=== PATIENT | male | born 1945 | race Caucasian/White ===

== ENCOUNTER → 2016-12-24 | Outpatient (CLI) | payer MEDICARE, MEDICAID ==
[~2016-12-24] MED LIST: AMLO5TAB2 PO; BENA20TA2 PO; BUDE10.2 IH; CALC200T10 PO; FINA5TAB4 PO; HYDR-3138 PO; TAMS-11 PO
== END | disposition home or self-care (01) ==
LOC: CARD 10:03
PROVIDERS: ATTEND Internal Medicine
DX: R20.2 Paresthesia of skin (principal)
CPT/HCPCS: 95885; 95908

== ENCOUNTER → 2017-02-16 | Outpatient (CLI) | payer MEDICARE, MEDICAID | END | disposition home or self-care (01) | LOC: CFH 10:32 | PROVIDERS: ATTEND Internal Medicine | DX: S12.110K Anterior displaced Type II dens fracture, subsequent encounter for fracture with nonunion (principal); M50.122 Cervical disc disorder at C5-C6 level with radiculopathy; M50.123 Cervical disc disorder at C6-C7 level with radiculopathy; M43.12 Spondylolisthesis, cervical region; M47.892 Other spondylosis, cervical region; G93.89 Other specified disorders of brain; M25.78 Osteophyte, vertebrae; M48.02 Spinal stenosis, cervical region; X58.XXXD Exposure to other specified factors, subsequent encounter | CPT/HCPCS: 72141 ==

== ENCOUNTER → 2017-04-11 | Outpatient (CLI) | payer MEDICARE, MEDICAID ==
[~2017-04-11] MED LIST changes: -CALC200T10 PO; +CALC200T56 PO; +CHOL10002 PO; -HYDR-3138 PO; +HYDR-3237 PO; +MULT-516 PO; +TAMS0.4C2 PO
[2017-04-11 11:51] LABS: HEMATOCRIT 47.1 % (39.2-51.8); HEMOGLOBIN 15.9 g/dL (13.7-18.0); WHITE BLOOD COUNT 8.6 x10^3/uL (3.4-10)
[2017-04-11 11:55] LABS: BLOOD UREA NITROGEN 18 mg/dL (7-18)
[2017-04-11 12:00] LABS: PATH.CAST-FLAG NOT PRESENT; SPERM-FLAG NOT PRESENT; SRC-FLAG NOT PRESENT; XTAL-FLAG NOT PRESENT; YLC-FLAG NOT PRESENT
== END | disposition home or self-care (01) ==
LOC: STAR 09:53
PROVIDERS: ATTEND Neurological Surgery
DX: Z01.818 Encounter for other preprocedural examination (principal); M48.02 Spinal stenosis, cervical region; M50.30 Other cervical disc degeneration, unspecified cervical region; R79.1 Abnormal coagulation profile; R82.99 Other abnormal findings in urine
CPT/HCPCS: 36415; 71020; 80048; 81001; 85025; 85610; 85730; 87077; 87086; 87147; 87186; 93005

== ENCOUNTER → 2017-04-18 | Outpatient (CLI) | payer MEDICARE, MEDICAID ==
[~2017-04-18] MED LIST changes: +CIPR500T87 PO; +CYCL-259 PO; +OXYC1TAB7 PO
== END | disposition home or self-care (01) ==
LOC: CVU 06:41
PROVIDERS: ATTEND Internal Medicine Cardiovascular Disease
DX: Z01.810 Encounter for preprocedural cardiovascular examination (principal); I35.8 Other nonrheumatic aortic valve disorders; I11.9 Hypertensive heart disease without heart failure
CPT/HCPCS: 93306

== ENCOUNTER → 2017-04-19 | Outpatient (CLI) | payer MEDICARE, MEDICAID ==
[~2017-04-19] MED LIST changes: -CYCL-259 PO; -OXYC1TAB7 PO; +REGADENOSON 0.4 MG/5 ML SYRINGE ONE
== END | disposition home or self-care (01) ==
LOC: RAD 10:59
PROVIDERS: ATTEND Internal Medicine Cardiovascular Disease
DX: Z01.810 Encounter for preprocedural cardiovascular examination (principal); I25.10 Atherosclerotic heart disease of native coronary artery without angina pectoris; I25.2 Old myocardial infarction
CPT/HCPCS: 78452; 93017; A9502; J2785

== ENCOUNTER 2017-04-20 07:00 | Inpatient (IN) | payer MEDICARE, MEDICAID ==
[~2017-04-20] VITALS: Ht 182.9 cm; Wt 89.2 kg
[~2017-04-20 07:00] MED LIST changes: +BACITRACIN 50,000 UNIT ONE; +BUPIVACAINE/PF 0.5% ONE; -CIPR500T87 PO; +EPINEPHRINE 1 MG/ML, 1ML ONE; -REGADENOSON 0.4 MG/5 ML SYRINGE ONE; +THROMBIN 5,000 UNIT VIAL TP ONE
[2017-04-20] MEDS ORDERED: LACTATED RINGERS 1,000 ML IV SCH (07:58)
[2017-04-20] MEDS ORDERED: CIPR500T87 PO (08:07)
[2017-04-20 08:12] VITALS: BP 156/90
[2017-04-20] MEDS ORDERED: MIDAZOLAM 1 MG/ML, 2ML ONE (08:46)
[2017-04-20] MEDS ORDERED: KETAMINE 10 MG/ML, 20ML ONE (08:46)
[2017-04-20] MEDS ORDERED: FENTANYL PF 100 MCG/2ML ONE ×4 (08:46→14:07)
[2017-04-20] MEDS ORDERED: PHENYLEPHRINE 10 MG/ML ONE (09:21)
[2017-04-20] MEDS ORDERED: CEFAZOLIN 1,000 MG ONE (09:21)
[2017-04-20] MEDS ORDERED: PROPOFOL 10 MG/ML, 20ML ONE (09:21)
[2017-04-20] MEDS ORDERED: ROCURONIUM 10 MG/ML ONE (09:21)
[2017-04-20] MEDS ORDERED: ONDANSETRON 2MG/ML, 2ML ONE (09:21)
[2017-04-20] MEDS ORDERED: DEXAMETHASONE 4 MG/ML, 1ML ONE (09:21)
[2017-04-20] MEDS ORDERED: PROPOFOL 10 MG/ML, 50ML ONE (09:21)
[2017-04-20] MEDS ORDERED: ACETAMINOPHEN 325 MG TABLET PO PRN (10:30)
[2017-04-20] MEDS ORDERED: ONDANSETRON 2MG/ML, 2ML IVPush PRN ×2 (10:30→13:00)
[2017-04-20] MEDS ORDERED: ALBUTEROL/IPRATROPIUM 2.5MG/0.5MG, 3 ML NPPB PRN (10:30)
[2017-04-20] MEDS ORDERED: DIAZEPAM 5 MG/ML, 2ML IVPush PRN (10:30)
[2017-04-20] MEDS ORDERED: MEPERIDINE/PF 25MG/0.5ML IVPush PRN (10:30)
[2017-04-20] MEDS ORDERED: OXYcodone 5 MG/5 ML ORAL.SOL UDC PO PRN (10:30)
[2017-04-20] MEDS ORDERED: LABETALOL 5MG/ML, 20ML IV PRN (10:30)
[2017-04-20] MEDS ORDERED: EPHEDRINE 50 MG/ML, 1ML IVPush PRN (10:30)
[2017-04-20] MEDS ORDERED: hydrALAzine 20 MG/ML, 1ML IV PRN (10:30)
[2017-04-20] MEDS ORDERED: PROMETHAZINE 25 MG/ML, 1ML IV PRN (10:30)
[2017-04-20] MEDS ORDERED: MIDAZOLAM 1 MG/ML, 2ML IV PRN (10:30)
[2017-04-20] MEDS ORDERED: FENTANYL PF 100 MCG/2ML IV PRN (10:30)
[2017-04-20] MEDS ORDERED: VANCOMYCIN 1,000 MG ONE (11:21)
[2017-04-20] MEDS ORDERED: BUPIVACAINE/PF 0.5% ONE (11:21)
[2017-04-20] MEDS ORDERED: PHARMACY MAY ADJ FOR RENAL FX MC PRN (13:00)
[2017-04-20] MEDS ORDERED: DIPHENHYDRAMINE 50 MG/ML, 1ML IVPush PRN (13:00)
[2017-04-20] MEDS ORDERED: BISACODYL 10 MG SUPP PR PRN (13:00)
[2017-04-20] MEDS ORDERED: LABETALOL 5MG/ML, 20ML ONE (13:00)
[2017-04-20] MEDS ORDERED: morphine SULFATE 10 MG/ML, 1ML IVPush PRN (13:00)
[2017-04-20] MEDS ORDERED: SENNA/DOCUSATE TABLET PO PRN (13:00)
[2017-04-20] MEDS ORDERED: LABETALOL 5MG/ML, 20ML IVPush PRN (13:00)
[2017-04-20] MEDS ORDERED: MAGNESIUM HYDROXIDE 8%, 30ML UDC PO PRN (13:00)
[2017-04-20] MEDS ORDERED: OXYcodone 5 MG/5 ML ORAL.SOL UDC ONE (13:00)
[2017-04-20] MEDS ORDERED: DIPHENHYDRAMINE 50 MG CAPSULE PO PRN (13:00)
[2017-04-20] MEDS ORDERED: PROMETHAZINE 25 MG/ML, 1ML IM PRN (13:00)
[2017-04-20] MEDS ORDERED: HYDROmorphone 1 MG/ML, 1ML ONE (13:12)
[2017-04-20] MEDS ORDERED: hydrALAzine 20 MG/ML, 1ML ONE (13:12)
[2017-04-20] MEDS: HYDROmorphone 1 MG/ML, 1ML IV PRN ×2 (13:30→14:00)
[2017-04-20] MEDS ORDERED: CYCLOBENZAPRINE 10 MG TABLET ONE (14:07)
[2017-04-20] MEDS: CYCLOBENZAPRINE 10 MG TABLET PO PRN (14:11)
[2017-04-20] MEDS ORDERED: THROMBIN 5,000 UNIT VIAL TP ONE (14:20)
[2017-04-20] MEDS ORDERED: ENOXAPARIN 40 MG/0.4 ML SQ SCH (16:00)
[2017-04-20] MEDS: HYDROcodone/APAP 5/325 TABLET PO PRN ×2 (16:53→18:40)
[2017-04-20] MEDS: D5%-0.9% NACL+KCL 20MEQ 1,000 ML IV SCH (16:54)
[2017-04-20] MEDS: CEFAZOLIN PMX 1GM/50ML 50 ML IVPB SCH (16:54)
[2017-04-20 18:56] VITALS: BP 146/76
[2017-04-20] MEDS ORDERED: BUDESONIDE 0.5 MG/2 ML INHA INH SCH (21:00)
[2017-04-20] MEDS: SODIUM CHLORIDE FLUSH 10ML SYR IVF SCH (21:49)
[2017-04-20] MEDS: TAMSULOSIN 0.4 MG CAP.ER.24H PO SCH (21:49)
[2017-04-20] MEDS: FLUTICASONE/VILANTEROL 200-25MCG/INH INH SCH (21:50)
[2017-04-20 22:59] VITALS: BP 139/79
[2017-04-20] MEDS: OXYcodone/APAP 5/325MG TABLET PO PRN (23:04)
[2017-04-21] MEDS: CEFAZOLIN PMX 1GM/50ML 50 ML IVPB SCH (01:23)
[2017-04-21 03:44] VITALS: BP 116/72
[2017-04-21] MEDS: D5%-0.9% NACL+KCL 20MEQ 1,000 ML IV SCH ×2 (04:14→20:16)
[2017-04-21] MEDS: ENOXAPARIN 40 MG/0.4 ML SQ SCH (05:07)
[2017-04-21 05:53] LABS: HEMOGLOBIN 13.7 g/dL (13.7-18.0); WHITE BLOOD COUNT 11.6 x10^3/uL (3.4-10)
[2017-04-21 06:06] LABS: BLOOD UREA NITROGEN 20 mg/dL (7-18)
[2017-04-21] MEDS: OXYcodone/APAP 5/325MG TABLET PO PRN (06:19)
[2017-04-21 08:50] VITALS: BP 120/70
[2017-04-21] MEDS: FINASTERIDE 5 MG TABLET PO SCH (09:21)
[2017-04-21] MEDS: SODIUM CHLORIDE FLUSH 10ML SYR IVF SCH ×2 (09:22→20:16)
[2017-04-21] MEDS: FLUTICASONE/VILANTEROL 200-25MCG/INH INH SCH ×2 (09:22→20:17)
[2017-04-21] MEDS: CIPROFLOXACIN 500 MG TABLET PO SCH (09:22)
[2017-04-21] MEDS: TAMSULOSIN 0.4 MG CAP.ER.24H PO SCH ×2 (09:23→20:16)
[2017-04-21 15:22] VITALS: BP 153/84
[2017-04-21] MEDS: HYDROcodone/APAP 5/325 TABLET PO PRN (15:44)
[2017-04-21] MEDS: CYCLOBENZAPRINE 10 MG TABLET PO PRN (16:40)
[2017-04-21] MEDS ORDERED: CALCIUM CARBONATE 500 MG TAB.CHEW PO PRN (17:30)
[2017-04-21 19:09] VITALS: BP 157/82
[2017-04-22] MEDS: CYCLOBENZAPRINE 10 MG TABLET PO PRN ×2 (00:41→12:56)
[2017-04-22 00:56] VITALS: BP 196/92
[2017-04-22] MEDS: OXYcodone/APAP 5/325MG TABLET PO PRN ×3 (01:36→20:05)
[2017-04-22 06:03] LABS: HEMATOCRIT 41.3 % (39.2-51.8); HEMOGLOBIN 13.6 g/dL (13.7-18.0); WHITE BLOOD COUNT 10.8 x10^3/uL (3.4-10)
[2017-04-22 06:13] LABS: BLOOD UREA NITROGEN 21 mg/dL (7-18)
[2017-04-22] MEDS: ENOXAPARIN 40 MG/0.4 ML SQ SCH (06:43)
[2017-04-22 06:57] VITALS: BP 156/94
[2017-04-22] MEDS: D5%-0.9% NACL+KCL 20MEQ 1,000 ML IV SCH ×2 (07:40→17:40)
[2017-04-22] MEDS: CIPROFLOXACIN 500 MG TABLET PO SCH (09:06)
[2017-04-22] MEDS: SODIUM CHLORIDE FLUSH 10ML SYR IVF SCH (09:06)
[2017-04-22] MEDS: FLUTICASONE/VILANTEROL 200-25MCG/INH INH SCH (09:07)
[2017-04-22] MEDS: FINASTERIDE 5 MG TABLET PO SCH (09:07)
[2017-04-22] MEDS: TAMSULOSIN 0.4 MG CAP.ER.24H PO SCH (09:08)
[2017-04-22 12:41] VITALS: BP 185/109
[2017-04-22 18:39] VITALS: BP 158/77
[2017-04-23] MEDS: TAMSULOSIN 0.4 MG CAP.ER.24H PO SCH ×2 (00:10→08:26)
[2017-04-23] MEDS: SODIUM CHLORIDE FLUSH 10ML SYR IVF SCH ×2 (00:10→08:26)
[2017-04-23] MEDS: FLUTICASONE/VILANTEROL 200-25MCG/INH INH SCH ×2 (00:10→08:26)
[2017-04-23 01:31] VITALS: BP 132/80
[2017-04-23] MEDS: CYCLOBENZAPRINE 10 MG TABLET PO PRN ×2 (02:09→10:03)
[2017-04-23] MEDS: D5%-0.9% NACL+KCL 20MEQ 1,000 ML IV SCH (03:40)
[2017-04-23] MEDS: OXYcodone/APAP 5/325MG TABLET PO PRN ×2 (04:07→14:16)
[2017-04-23 05:21] LABS: HEMATOCRIT 40.2 % (39.2-51.8); HEMOGLOBIN 13.5 g/dL (13.7-18.0); WHITE BLOOD COUNT 9.7 x10^3/uL (3.4-10)
[2017-04-23] MEDS: ENOXAPARIN 40 MG/0.4 ML SQ SCH (05:47)
[2017-04-23 08:01] VITALS: BP 136/82
[2017-04-23] MEDS: FINASTERIDE 5 MG TABLET PO SCH (08:25)
[2017-04-23] MEDS: CIPROFLOXACIN 500 MG TABLET PO SCH (08:26)
[2017-04-23 14:56] VITALS: BP 130/78
[2017-04-23] MEDS ORDERED: CYCL-259 PO (16:44)
[2017-04-23] MEDS ORDERED: OXYC1TAB7 PO (16:44)
== END 2017-04-23 17:30 | DRG 471 ==
LOC: ORIP 07:36 → 4NOR 14:59
PROVIDERS: ADMIT Neurological Surgery; ATTEND Neurological Surgery
PROC: 4A00X4Z Measurement of Central Nervous Electrical Activity, External Approach (ICD-10-PCS; 2017-04-20)
PROC: 0RG1071 Fusion of Cervical Vertebral Joint with Autologous Tissue Substitute, Posterior Approach, Posterior Column, Open Approach (ICD-10-PCS; principal; 2017-04-20 09:30)
DX: M48.02 Spinal stenosis, cervical region (principal); N17.0 Acute kidney failure with tubular necrosis; G95.89 Other specified diseases of spinal cord; J44.9 Chronic obstructive pulmonary disease, unspecified; N40.0 Benign prostatic hyperplasia without lower urinary tract symptoms; G89.29 Other chronic pain; I25.10 Atherosclerotic heart disease of native coronary artery without angina pectoris; I12.9 Hypertensive chronic kidney disease with stage 1 through stage 4 chronic kidney disease, or unspecified chronic kidney disease; N18.3 Chronic kidney disease, stage 3 (moderate); Z79.51 Long term (current) use of inhaled steroids; Z79.899 Other long term (current) drug therapy; I25.2 Old myocardial infarction; M53.2X2 Spinal instabilities, cervical region
CPT/HCPCS: 36415; 72040; 72125; 80048; 85025; C1713; J0171; J0690; J1100; J1170; J1650; J2250; J2405; J2704; J3010; J3370; J3490; C1762; J0360; J2370; J3480; J7120

== ENCOUNTER → 2017-06-14 | Outpatient (CLI) | payer MEDICARE, MEDICAID ==
[~2017-06-14] MED LIST changes: -BACITRACIN 50,000 UNIT ONE; -BUPIVACAINE/PF 0.5% ONE; +CIPR500T87 PO; +CYCL-259 PO; -EPINEPHRINE 1 MG/ML, 1ML ONE; +OXYC1TAB7 PO; -THROMBIN 5,000 UNIT VIAL TP ONE
== END | disposition home or self-care (01) ==
LOC: CFH 11:40
PROVIDERS: ATTEND Neurological Surgery
DX: M54.2 Cervicalgia (principal)
CPT/HCPCS: 72040

== ENCOUNTER → 2017-10-17 | Outpatient (CLI) | payer MEDICARE, MEDICAID | END | disposition home or self-care (01) | LOC: CFH 10:29 | PROVIDERS: ATTEND Physician Assistant | DX: M50.322 Other cervical disc degeneration at C5-C6 level (principal); M50.01 Cervical disc disorder with myelopathy, high cervical region | CPT/HCPCS: 72125 ==

== ENCOUNTER → 2017-11-14 | Outpatient (CLI) | payer MEDICARE, MEDICAID | END | disposition home or self-care (01) | LOC: CFH 14:52 | PROVIDERS: ATTEND Neurological Surgery | DX: M47.13 Other spondylosis with myelopathy, cervicothoracic region (principal); M48.03 Spinal stenosis, cervicothoracic region; M79.602 Pain in left arm | CPT/HCPCS: 72141 ==

== ENCOUNTER 2018-02-16 10:27 | Emergency (ER) | payer MEDICARE, MEDICAID ==
[~2018-02-16] VITALS: Ht 182.9 cm; Wt 93.0 kg
[2018-02-16 11:31] LABS: BASOPHILS # (AUTO) 0.04 x10^3/uL (0-0.1); BASOPHILS % (AUTO) 1 % (0-1); EOSINOPHILS # (AUTO) 0.27 x10^3/uL (0-0.4); EOSINOPHILS % (AUTO) 4 % (1-7); LYMPHOCYTES # (AUTO) 1.41 x10^3/uL (1-3.4); LYMPHOCYTES % (AUTO) 21 % (22-44); MD NO; MEAN CORPUSCULAR HEMOGLOBIN 30.5 pg (27.5-34.5); MEAN CORPUSCULAR HGB CONC 33.4 g/dL (33.2-36.2); MEAN CORPUSCULAR VOLUME 91.2 fL (81-97); MEAN PLATELET VOLUME 8.6 fL (7.4-10.4); MONOCYTES # (AUTO) 0.84 x10^3/uL (0.2-0.8); MONOCYTES % (AUTO) 13 % (2-9); NEUTROPHILS # (AUTO) 4.11 x10^3/uL (1.8-6.8); NEUTROPHILS % (AUTO) 62 % (42-75); PLATELET COUNT 168 x10^3/uL (130-400); RED BLOOD COUNT 4.85 x10^6/uL (4.38-5.82); RED CELL DISTRIBUTION WIDTH 14.3 % (9.4-14.8)
[2018-02-16 11:41] LABS: ALANINE AMINOTRANSFERASE 34 U/L (12-78); ALBUMIN 3.4 g/dL (3.4-5.0); ANION GAP 9 mmol/L (5-15); CHLORIDE 112 mmol/L (98-107); CREATININE 1.72 mg/dL (0.7-1.3)
[2018-02-16 11:43] LABS: ALKALINE PHOSPHATASE 81 U/L (45-117); BILIRUBIN,TOTAL 0.5 mg/dL (0.2-1.0); TOTAL PROTEIN 6.8 g/dL (6.4-8.2)
[2018-02-16 12:56] VITALS: BP 136/77
== END 2018-02-16 13:04 | disposition home or self-care (01) ==
LOC: ED 11:30
DX: I87.2 Venous insufficiency (chronic) (peripheral) (principal); R60.0 Localized edema; I10 Essential (primary) hypertension; I25.2 Old myocardial infarction; J43.9 Emphysema, unspecified; I25.10 Atherosclerotic heart disease of native coronary artery without angina pectoris
CPT/HCPCS: 36415; 80053; 85025; 99284

== ENCOUNTER → 2018-03-08 | Outpatient (CLI) | payer MEDICARE, MEDICAID ==
[~2018-03-08] MED LIST changes: -BENA20TA2 PO; +BENA20TA4 PO
== END | disposition home or self-care (01) ==
LOC: RAD 10:31
PROVIDERS: ATTEND Internal Medicine Hospice and Palliative Medicine
DX: M47.897 Other spondylosis, lumbosacral region (principal)
CPT/HCPCS: 72100

== ENCOUNTER → 2018-05-19 | Outpatient (CLI) | payer MEDICARE, MEDICAID ==
[~2018-05-19] MED LIST changes: -AMLO5TAB2 PO; +AMLO5TAB7 PO
== END | disposition home or self-care (01) ==
LOC: CFH 10:29
PROVIDERS: ATTEND Neurological Surgery
DX: M50.30 Other cervical disc degeneration, unspecified cervical region (principal); M51.26 Other intervertebral disc displacement, lumbar region; M48.061 Spinal stenosis, lumbar region without neurogenic claudication
CPT/HCPCS: 72040; 72148

== ENCOUNTER → 2018-05-24 | Outpatient (CLI) | payer MEDICARE, MEDICAID | END | disposition home or self-care (01) | LOC: CFH 09:57 | PROVIDERS: ATTEND Neurological Surgery | DX: M48.02 Spinal stenosis, cervical region (principal); M47.892 Other spondylosis, cervical region; M43.22 Fusion of spine, cervical region; M50.01 Cervical disc disorder with myelopathy, high cervical region | CPT/HCPCS: 72141 ==

== ENCOUNTER 2018-07-28 09:44 | Emergency (ER) | payer MEDICARE, MEDICAID ==
[~2018-07-28] VITALS: Ht 182.9 cm; Wt 98.7 kg
[~2018-07-28 09:44] MED LIST changes: +AMLO-150 PO; -AMLO5TAB7 PO
[2018-07-28 09:49] VITALS: BP 171/91
--- NOTE | 2018-07-28 10:07 | NUR ---
GOPHERMAN: PT TO ROOM FROM LOBBY VIA PERSONAL SCOOTER.
[2018-07-28 10:53] LABS: BASOPHILS # (AUTO) 0.04 x10^3/uL (0-0.1); BASOPHILS % (AUTO) 1 % (0-1); EOSINOPHILS # (AUTO) 0.34 x10^3/uL (0-0.4); EOSINOPHILS % (AUTO) 5 % (1-7); LYMPHOCYTES # (AUTO) 1.57 x10^3/uL (1-3.4); LYMPHOCYTES % (AUTO) 22 % (22-44); MD NO; MEAN CORPUSCULAR HEMOGLOBIN 30.1 pg (27.5-34.5); MEAN CORPUSCULAR HGB CONC 33.2 g/dL (33.2-36.2); MEAN CORPUSCULAR VOLUME 90.8 fL (81-97); MEAN PLATELET VOLUME 8.5 fL (7.4-10.4); MONOCYTES # (AUTO) 0.71 x10^3/uL (0.2-0.8); MONOCYTES % (AUTO) 10 % (2-9); NEUTROPHILS # (AUTO) 4.53 x10^3/uL (1.8-6.8); NEUTROPHILS % (AUTO) 63 % (42-75); PLATELET COUNT 167 x10^3/uL (130-400); RED BLOOD COUNT 4.92 x10^6/uL (4.38-5.82); RED CELL DISTRIBUTION WIDTH 14.6 % (9.4-14.8)
[2018-07-28 11:02] LABS: INTERNATIONAL NORMALIZED RATIO 1.01 (0.93-1.1); PROTHROMBIN TIME 10.7 Seconds (9.6-11.5)
[2018-07-28 11:06] LABS: ALBUMIN 3.5 g/dL (3.4-5.0); ANION GAP 8 mmol/L (5-15); CALCIUM 7.6 mg/dL (8.5-10.1); CHLORIDE 113 mmol/L (98-107); CREATININE 1.72 mg/dL (0.7-1.3)
== END 2018-07-28 11:42 | disposition home or self-care (01) ==
LOC: ED 11:36
DX: I80.02 Phlebitis and thrombophlebitis of superficial vessels of left lower extremity (principal); J44.9 Chronic obstructive pulmonary disease, unspecified; I25.2 Old myocardial infarction; I25.10 Atherosclerotic heart disease of native coronary artery without angina pectoris; I10 Essential (primary) hypertension; Z90.49 Acquired absence of other specified parts of digestive tract; Z87.891 Personal history of nicotine dependence
CPT/HCPCS: 36415; 80048; 82040; 85025; 85610; 99284

== ENCOUNTER 2020-01-03 16:03 | Inpatient (IN) | payer MEDICARE, MEDICAID ==
[~2020-01-03] VITALS: Ht 182.9 cm; Wt 97.4 kg
[~2020-01-03 16:03] MED LIST changes: -BENA20TA4 PO; +BENA20TA54 PO
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
[2020-01-03 16:57] LABS: BASOPHILS # (AUTO) 0.05 x10^3/uL (0-0.1); BASOPHILS % (AUTO) 1 % (0-1); EOSINOPHILS # (AUTO) 0.33 x10^3/uL (0-0.4); EOSINOPHILS % (AUTO) 4 % (1-7); LYMPHOCYTES # (AUTO) 1.84 x10^3/uL (1-3.4); LYMPHOCYTES % (AUTO) 23 % (22-44); MD NO; MEAN CORPUSCULAR HEMOGLOBIN 31.5 pg (27.5-34.5); MEAN CORPUSCULAR VOLUME 95.4 fL (81-97); MEAN PLATELET VOLUME 8.9 fL (7.4-10.4); MONOCYTES # (AUTO) 0.99 x10^3/uL (0.2-0.8); MONOCYTES % (AUTO) 12 % (2-9); NEUTROPHILS % (AUTO) 61 % (42-75); PLATELET COUNT 192 x10^3/uL (130-400); RED BLOOD COUNT 5.35 x10^6/uL (4.38-5.82); RED CELL DISTRIBUTION WIDTH 14.8 % (9.4-14.8)
[2020-01-03 17:06] LABS: INTERNATIONAL NORMALIZED RATIO 0.96 (0.93-1.1); PROTHROMBIN TIME 10.2 Seconds (9.6-11.5)
[2020-01-03 17:07] LABS: ALANINE AMINOTRANSFERASE 46 U/L (12-78); ALBUMIN 3.8 g/dL (3.4-5.0); ANION GAP 8 mmol/L (5-15); CALCIUM 8.6 mg/dL (8.5-10.1); CHLORIDE 113 mmol/L (98-107); CREATININE 1.69 mg/dL (0.7-1.3)
[2020-01-03 17:11] LABS: ALKALINE PHOSPHATASE 91 U/L (45-117); BILIRUBIN,TOTAL 0.6 mg/dL (0.2-1.0); TOTAL PROTEIN 7.7 g/dL (6.4-8.2); TROPONIN I < 0.015 ng/mL (0.000-0.045)
[2020-01-03] MEDS ORDERED: ASPIRIN 81 MG TABLET EC ONE (18:15)
[2020-01-03] MEDS ORDERED: ASPIRIN 81 MG TABLET CHEW ONE (18:19)
--- NOTE | 2020-01-03 18:21 | NUR ---
BREAK RN: PT MEDICATED PER SEP, PT RESTING IN [facility], NO NEEDS AT THIS TIME, AWAITING CTA
[2020-01-03] MEDS ORDERED: ASPIRIN 81 MG TABLET CHEW PO ONE (18:30)
[2020-01-03] MEDS ORDERED: SODIUM CHLORIDE FLUSH 10ML SYR IVF PRN (19:00)
[2020-01-03] MEDS ORDERED: OMNIPAQUE 350 MG/ML, 75ML BOTTLE ONE (19:10)
[2020-01-03] MEDS ORDERED: LACTATED RINGERS 1,000 ML IV SCH (20:00)
[2020-01-03] MEDS ORDERED: ONDANSETRON 2MG/ML, 2ML IVPush PRN (20:00)
[2020-01-03] MEDS ORDERED: DOCUSATE 100 MG CAPSULE PO PRN (20:00)
[2020-01-03] MEDS ORDERED: ATORVASTATIN 40 MG TABLET PO SCH (21:00)
[2020-01-03] MEDS: HEPARIN 5,000 UNITS/ML, 1ML SQ SCH (21:29)
[2020-01-03 21:32] VITALS: BP 191/92
[2020-01-03 21:50] VITALS: BP 176/100
[2020-01-04] VITALS (7 sets, daily range): BP systolic 152–179; BP diastolic 81–118
[2020-01-04] MEDS: ACETAMINOPHEN 325 MG TABLET PO PRN ×2 (04:18→22:45)
[2020-01-04] MEDS: HEPARIN 5,000 UNITS/ML, 1ML SQ SCH ×3 (04:18→20:07)
[2020-01-04 05:33] LABS: CHLORIDE,URINE RANDOM 154 mmol/L; POTASSIUM,URINE RANDOM 39 mmol/L; SODIUM,URINE RANDOM 151 mmol/L
[2020-01-04 06:11] LABS: BASOPHILS # (AUTO) 0.05 x10^3/uL (0-0.1); BASOPHILS % (AUTO) 1 % (0-1); EOSINOPHILS # (AUTO) 0.39 x10^3/uL (0-0.4); EOSINOPHILS % (AUTO) 5 % (1-7); LYMPHOCYTES # (AUTO) 2.21 x10^3/uL (1-3.4); LYMPHOCYTES % (AUTO) 28 % (22-44); MD NO; MEAN CORPUSCULAR HEMOGLOBIN 31.9 pg (27.5-34.5); MEAN CORPUSCULAR HGB CONC 33.4 g/dL (33.2-36.2); MEAN CORPUSCULAR VOLUME 95.4 fL (81-97); MONOCYTES # (AUTO) 1.04 x10^3/uL (0.2-0.8); MONOCYTES % (AUTO) 13 % (2-9); NEUTROPHILS # (AUTO) 4.35 x10^3/uL (1.8-6.8); NEUTROPHILS % (AUTO) 54 % (42-75); PLATELET COUNT 166 x10^3/uL (130-400); RED BLOOD COUNT 4.82 x10^6/uL (4.38-5.82); RED CELL DISTRIBUTION WIDTH 14.8 % (9.4-14.8)
[2020-01-04 06:27] LABS: CHLORIDE 110 mmol/L (98-107)
[2020-01-04 06:49] LABS: ANION GAP 8 mmol/L (5-15); CALCIUM 7.7 mg/dL (8.5-10.1); CHOL/HDL RATIO 7.2; CHOLESTEROL, TOTAL 180 mg/dL (140-239); CREATININE 1.55 mg/dL (0.7-1.3); HDL CHOL % 14 % (26-37); HDL CHOLESTEROL (DIRECT) 25 mg/dL (40-60); TRIGLYCERIDES 456 mg/dL (50-200)
[2020-01-04] MEDS ORDERED: ASPIRIN 81 MG TABLET CHEW PO/NG SCH (09:00)
[2020-01-04] MEDS: ALBUTEROL/IPRATROPIUM 2.5MG/0.5MG, 3 ML IPPB SCH (11:30)
[2020-01-04] MEDS ORDERED: CLOPIDOGREL 300 MG TABLET PO ONE (11:30)
[2020-01-04] MEDS ORDERED: LABETALOL 5MG/ML, 20ML IVPush PRN (11:30)
[2020-01-04] MEDS ORDERED: CYCLOBENZAPRINE 10 MG TABLET PO PRN (11:30)
[2020-01-04] MEDS: FINASTERIDE 5 MG TABLET PO SCH (12:23)
[2020-01-04] MEDS: TAMSULOSIN 0.4 MG CAP.ER.24H PO SCH ×2 (12:24→20:07)
[2020-01-04] MEDS: AMLODIPINE 5 MG TABLET PO SCH ×2 (12:24→20:07)
[2020-01-04] MEDS ORDERED: ATORVASTATIN 40 MG TABLET PO SCH (21:00)
[2020-01-05 01:23] VITALS: BP 142/79
[2020-01-05 04:10] VITALS: BP 148/83
[2020-01-05] MEDS: HEPARIN 5,000 UNITS/ML, 1ML SQ SCH ×2 (04:14→12:00)
[2020-01-05 08:13] VITALS: BP 166/96
[2020-01-05] MEDS ORDERED: ASPIRIN 325 MG TABLET EC PO SCH (09:00)
[2020-01-05] MEDS ORDERED: CLOPIDOGREL 75 MG TABLET PO SCH (09:00)
[2020-01-05] MEDS ORDERED: CHOLECALCIFEROL 1,000 UNIT TABLET PO SCH (09:00)
[2020-01-05] MEDS ORDERED: MULTIVITAMIN 1 TABLET PO SCH (09:00)
[2020-01-05] MEDS: ALBUTEROL/IPRATROPIUM 2.5MG/0.5MG, 3 ML IPPB SCH (09:00)
[2020-01-05] MEDS: FINASTERIDE 5 MG TABLET PO SCH (09:14)
[2020-01-05] MEDS: TAMSULOSIN 0.4 MG CAP.ER.24H PO SCH (09:14)
[2020-01-05] MEDS: AMLODIPINE 5 MG TABLET PO SCH (09:15)
[2020-01-05] MEDS ORDERED: CLOP75TA PO (10:43)
[2020-01-05] MEDS ORDERED: ASPI-650 PO (10:43)
[2020-01-05] MEDS ORDERED: ATOR40TA78 PO (10:43)
[2020-01-05] MEDS ORDERED: AMLO-150 PO (10:43)
[2020-01-05 13:21] VITALS: BP 153/69
== END 2020-01-05 14:25 | disposition home health service (06) | DRG 64 ==
LOC: ED 17:39 → EDIP 18:51 → 4EST 19:59 → DCLOUNGE 01-05 14:03
PROVIDERS: ADMIT Hospitalist; ATTEND Hospitalist
DX: I63.419 Cerebral infarction due to embolism of unspecified middle cerebral artery (principal); N17.0 Acute kidney failure with tubular necrosis; G81.94 Hemiplegia, unspecified affecting left nondominant side; G93.89 Other specified disorders of brain; I10 Essential (primary) hypertension; I25.10 Atherosclerotic heart disease of native coronary artery without angina pectoris; R29.706 NIHSS score 6; J44.9 Chronic obstructive pulmonary disease, unspecified; Z96.642 Presence of left artificial hip joint; M16.12 Unilateral primary osteoarthritis, left hip; N40.0 Benign prostatic hyperplasia without lower urinary tract symptoms; Z79.02 Long term (current) use of antithrombotics/antiplatelets; I25.2 Old myocardial infarction; Z87.891 Personal history of nicotine dependence; Z79.82 Long term (current) use of aspirin; Z79.899 Other long term (current) drug therapy; Z90.49 Acquired absence of other specified parts of digestive tract
CPT/HCPCS: 36415; 70450; 70496; 70498; 70551; 71045; 80048; 80053; 80061; 82436; 82570; 83036; 83735; 83880; 84100; 84133; 84300; 84443; 84484; 85025; 85610; 85730; 93005; 99285; G0378; J1644; Q9967; 92523-GN; J7120

== ENCOUNTER 2020-01-20 13:04 | Emergency (ER) | payer MEDICARE, MEDICAID ==
[~2020-01-20] VITALS: Ht 182.9 cm; Wt 90.5 kg
[~2020-01-20 13:04] MED LIST changes: +ASPI-650 PO; +ATOR40TA78 PO; +CLOP75TA PO
[2020-01-20 13:07] VITALS: BP 142/103
--- NOTE | 2020-01-20 13:33 | NUR ---
OPERATIONS RESEARCH GROUP MANAGER: PT TO ROOM VIA OWN SCOOTER.
--- NOTE | 2020-01-20 14:24 | NUR ---
FIRST CONTACT WITH PT. US AT BEDSIDE. PT APPEARS TO BE RESTING COMFORTABLY ON GURNEY. NAD NOTED. WILL RECHECK PT AFTER US FINISHED WITH TEST.
--- NOTE | 2020-01-20 14:36 | NUR ---
THIS IS A 74 YO MALE PRESENTING TO THE ER C/O LEFT HAND/FA SWELLING X 2 DAYS. PT DENIES PAIN AT THIS TIME. ERYTHEMA NOTED. PULSES 2+. CMS INTACT. 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 PT AO X 4. SKIN WARM AND DRY. RESP EVEN AND UNLABORED. PT POSITIONED FOR COMFORT. PT AWARE WE ARE WAITING FOR US RESULTS. CALL LIGHT PROVIDED TO PT.
--- NOTE | 2020-01-20 15:58 | NUR ---
BREAK RN: ATTEMPT TO DC PT, PT NOT IN ROOM, GOWN ON GURNEY.
== END 2020-01-20 16:00 | disposition home or self-care (01) ==
LOC: ED 14:53
DX: I63.9 Cerebral infarction, unspecified (principal); R60.9 Edema, unspecified; I10 Essential (primary) hypertension; I25.10 Atherosclerotic heart disease of native coronary artery without angina pectoris; J43.9 Emphysema, unspecified
CPT/HCPCS: 99284

== ENCOUNTER 2021-04-13 11:00 | Emergency (ER) | payer MEDICARE, MEDICAID ==
[~2021-04-13] VITALS: Ht 182.9 cm; Wt 89.9 kg
[~2021-04-13 11:00] MED LIST changes: -ASPI-650 PO; +ASPI325T20 PO; -CYCL-259 PO; +CYCL10TA2 PO
[2021-04-13 11:15] VITALS: BP 119/83
== END 2021-04-13 11:34 | disposition home or self-care (01) ==
LOC: ED 11:17
DX: Z00.00 Encounter for general adult medical examination without abnormal findings (principal); Z23 Encounter for immunization; I25.10 Atherosclerotic heart disease of native coronary artery without angina pectoris; I25.2 Old myocardial infarction; J43.9 Emphysema, unspecified; Z86.73 Personal history of transient ischemic attack (TIA), and cerebral infarction without residual deficits
CPT/HCPCS: 99281